=== PATIENT | female | born 1970 | race Caucasian/White ===

== ENCOUNTER 2018-06-26 16:06 | Outpatient (CLI) | payer BC | END 2018-06-26 16:07 | disposition home or self-care (01) | LOC: BICMAMMO 16:06 | PROVIDERS: ATTEND Obstetrics & Gynecology | DX: Z12.31 Encounter for screening mammogram for malignant neoplasm of breast (principal) | CPT/HCPCS: 77063; 77067 ==

== ENCOUNTER 2019-03-09 11:10 | Day surgery (SDC) | payer BC ==
[2019-03-09] MEDS ORDERED: Levofloxacin 500 mg/D5W 100 ml Premix Bag ONE (11:32)
[2019-03-09] MEDS ORDERED: Bupivacaine/Epinephrine 0.25% 30 ML VIAL ONE (11:36)
[2019-03-09] MEDS ORDERED: Fentanyl 100 MCG/2 ML VIAL ONE (11:42)
[2019-03-09] MEDS ORDERED: Midazolam HCl 2 mg/2 ml Vial ONE ×2 (11:42→11:54)
[2019-03-09] MEDS ORDERED: HYDROmorphone 2 MG/ML VIAL ONE (11:43)
[2019-03-09] MEDS ORDERED: Scopolamine 1.5 mg/72 hour Patch ONE (11:54)
[2019-03-09] MEDS ORDERED: Promethazine HCl 25 MG/ML VIAL ONE (13:55)
[2019-03-09] MEDS ORDERED: HYDROcodone/Acetaminophen 5/325 mg Tablet ONE (15:26)
[2019-03-09] MEDS ORDERED: Glycopyrrolate 0.2 MG/ML 5 ML SYRINGE ONE (16:36)
[2019-03-09] MEDS ORDERED: Ondansetron PF 4 MG/2 ML Vial ONE (16:36)
[2019-03-09] MEDS ORDERED: PROPOFOL 200 MG/20 ML VIAL ONE (16:36)
[2019-03-09] MEDS ORDERED: ePHEDrine 50 MG/ML VIAL ONE (16:36)
[2019-03-09] MEDS ORDERED: Lidocaine 1% PF 5 ML VIAL ONE (16:36)
[2019-03-09] MEDS ORDERED: Rocuronium Bromide 10 MG/ML (10ML VIAL) ONE (16:36)
[2019-03-09] MEDS ORDERED: Ketorolac Tromethamine 30 MG/ML VIAL ONE (16:36)
[2019-03-09] MEDS ORDERED: Dexamethasone 20 MG/5 ML VIAL ONE (16:36)
--- NOTE | 2019-03-10 09:31 | OP ---
DATE OF PROCEDURE: 03/09/2019 PROCEDURE PERFORMED: Laparoscopic cholecystectomy. PREOPERATIVE DIAGNOSES: Cholelithiasis and cholecystitis. POSTOPERATIVE DIAGNOSES: Cholelithiasis and cholecystitis. HISTORY: Ms. Albright is a 48-year-old woman with 2.5 months history of intermittent upper abdominal pain after eating, it got bad enough that she went to see emergency room over the weekend and was diagnosed with cholelithiasis and cholecystitis by ultrasound. Liver function tests were normal and her bile duct was normal caliber. Her pain was managed on oral medications, so she was discharged home with close outpatient followup in the [facility] Surgery [facility]. Recommendation was made to proceed to the operating room for laparoscopic cholecystectomy for symptomatic relief. FINDINGS: White-walled thickened gallbladder with significant edema, chronic-appearing omental adhesions, normal caliber cystic duct. PROCEDURE: After informed consent was obtained and appropriate preoperative antibiotics were administered, the patient was taken to the operating room and placed in the supine position and general endotracheal anesthesia was administered. The stomach was decompressed with an OG tube and the abdomen was prepped and draped in standard sterile fashion. Local anesthesia was infused to the skin and subcutaneous tissues at the umbilical level. A transverse skin incision was made. The fascia was elevated and a Veress needle was placed into the abdominal cavity without difficulty. Opening pressure was less than 5 and carbon dioxide gas easily insufflated to an intra-abdominal pressure of 15, which the patient tolerated well. The Veress needle was withdrawn and a [place] port advanced under direct vision. The abdominal cavity was carefully examined. There was no evidence of Veress needle or of trocar injury. Local anesthesia was infused to the skin and subcutaneous tissues at the epigastric, right upper quadrant, and right lateral abdominal sites and trocars were placed under direct vision of the laparoscope. The fundus of the gallbladder was grasped and retracted superiorly. Chronic-appearing omental adhesions were stripped inferiorly through the avascular plane exposing the infundibulum. The infundibulum was grasped and retracted laterally. The serosa was stripped inferiorly at the level of the neck of the gallbladder exposing the cystic duct and artery which were traced clearly to their insertion in the gallbladder. There was significant edema at this level but the cystic duct was normal in caliber. Critical view of safety was obtained and the cystic duct and artery were clipped and divided between clips. The gallbladder was then dissected free of the gallbladder bed using hook electrocautery. Prior to complete removal of the gallbladder from the gallbladder bed, the area of the cystic duct and artery stumps was examined. The clips were in good position completely across these structures and there was no bleeding and no leakage of bile. The gallbladder was then placed into an EndoCatch bag and drawn out through the epigastric incision. The epigastric trocar was replaced and the operative site easily irrigated to clear. There was no significant bleeding or spillage of bile. The epigastric trocar was removed and the fascia closed under direct laparoscopic vision with a 0 Vicryl suture on a GraNee needle in a figure -of-eight manner with excellent technical result. The right upper quadrant and right lateral abdominal trocars were removed and hemostasis verified. Carbon dioxide gas was allowed to desufflate through the umbilical trocar which was then removed. The skin incisions were closed with 4-0 subcuticular Monocryl sutures and Dermabond dressings were placed. The patient was extubated and taken to the recovery room in good condition. There were no complications. ESTIMATED BLOOD LOSS: Minimal. SPECIMEN : Gallbladder and contents. Job ID: [id number] [facility]
== END 2019-03-09 15:50 | disposition home or self-care (01) ==
LOC: SDC 11:10
PROVIDERS: ATTEND Surgery
PROC: 0FT44ZZ Resection of Gallbladder, Percutaneous Endoscopic Approach (ICD-10-PCS; principal; 2019-03-09)
DX: K80.10 Calculus of gallbladder with chronic cholecystitis without obstruction (principal); E78.5 Hyperlipidemia, unspecified; F41.9 Anxiety disorder, unspecified; I10 Essential (primary) hypertension; E66.9 Obesity, unspecified; Z68.33 Body mass index [BMI] 33.0-33.9, adult; Z86.73 Personal history of transient ischemic attack (TIA), and cerebral infarction without residual deficits; Z79.899 Other long term (current) drug therapy; Z88.0 Allergy status to penicillin; Z88.1 Allergy status to other antibiotic agents; Z88.8 Allergy status to other drugs, medicaments and biological substances
CPT/HCPCS: 88304; J1100; J1170; J1885; J1956; J2001; J2250; J2405; J2550; J2704; J3010; J3490

== ENCOUNTER 2019-07-24 15:28 | Outpatient (CLI) | payer BC ==
--- NOTE | 2019-07-24 17:20 | MMO ---
Bilateral MAMMO Bilat Screen [facility]. CLINICAL HISTORY: Patient is 49 years old and is seen for screening. The patient has no family history of breast cancer. The patient has no personal history of cancer. VIEWS: The views performed were: bilateral craniocaudal with tomosynthesis and bilateral mediolateral oblique with tomosynthesis. FILMS COMPARED: The present examination has been compared to prior imaging studies performed at [facility] on 06/26/2018, and at [facility] on 12/27/2014, 01/30/2016 and 04/09/2017. This study has been interpreted with the assistance of computer-aided detection. MAMMOGRAM FINDINGS: There are scattered fibroglandular densities. There are stable benign appearing calcifications seen in both breasts. There are no suspicious masses, calcifications or areas of architectural distortion. There are no suspicious masses, suspicious calcifications, or new areas of architectural distortion. IMPRESSION: THERE IS NO MAMMOGRAPHIC EVIDENCE OF MALIGNANCY. A ROUTINE FOLLOW-UP MAMMOGRAM IN 1 YEAR IS RECOMMENDED. THE RESULTS OF THIS EXAM WERE SENT TO THE PATIENT. ACR BI-RADS Category 2 - Benign finding MAMMOGRAPHY NOTE: 1. A negative mammogram report should not delay a biopsy if a dominant of clinically suspicious mass is present. 2. Approximately 10% to 15% of breast cancers are not detected by mammography. 3. Adenosis and dense breasts may obscure an underlying neoplasm. Reported by: JAYSON PATEL MD Electonically Signed: [id number]
== END 2019-07-24 15:29 | disposition home or self-care (01) ==
LOC: BICMAMMO 15:28
PROVIDERS: ATTEND Obstetrics & Gynecology
DX: Z12.31 Encounter for screening mammogram for malignant neoplasm of breast (principal)
CPT/HCPCS: 77063; 77067

== ENCOUNTER 2022-01-24 19:00 | Outpatient (CLI) | payer BC | END 2022-01-24 19:01 | disposition home or self-care (01) | LOC: SLEEPLAB 19:00 | PROVIDERS: ATTEND Family Medicine | DX: G47.33 Obstructive sleep apnea (adult) (pediatric) (principal); F32.9 Major depressive disorder, single episode, unspecified; R53.83 Other fatigue; G47.00 Insomnia, unspecified; R06.83 Snoring; E66.9 Obesity, unspecified; Z68.34 Body mass index [BMI] 34.0-34.9, adult | CPT/HCPCS: 95800 ==

== ENCOUNTER 2022-03-01 18:00 | Outpatient (CLI) | payer BC | END 2022-03-01 18:01 | disposition home or self-care (01) | LOC: SLEEPLAB 18:00 | PROVIDERS: ATTEND Family Medicine | DX: G47.33 Obstructive sleep apnea (adult) (pediatric) (principal); R53.83 Other fatigue; F32.9 Major depressive disorder, single episode, unspecified; E66.9 Obesity, unspecified; R06.83 Snoring; G47.00 Insomnia, unspecified; Z68.34 Body mass index [BMI] 34.0-34.9, adult | CPT/HCPCS: 95800 ==

== ENCOUNTER 2022-11-02 19:30 | Outpatient (CLI) | payer BC | END 2022-11-02 19:31 | disposition home or self-care (01) | LOC: SLEEPLAB 19:30 | PROVIDERS: ATTEND Family Medicine | DX: G47.33 Obstructive sleep apnea (adult) (pediatric) (principal); R53.83 Other fatigue; F32.A Depression, unspecified; E66.9 Obesity, unspecified; R06.83 Snoring; G47.00 Insomnia, unspecified | CPT/HCPCS: 95811 ==